=== PATIENT | male | born 1960 | race Caucasian/White ===

== ENCOUNTER 2024-12-28 16:06 | Outpatient (AMB) | payer BC, SELFPAY | END 2024-12-28 16:14 | disposition home or self-care (01) | PROVIDERS: Visit Provider Registered Nurse Emergency | DX: J30.89 Other allergic rhinitis (principal) | CPT/HCPCS: 95117; 95165 ==

== ENCOUNTER 2025-01-30 16:14 | Outpatient (AMB) | payer OTHER, SELFPAY | END 2025-01-30 16:14 | disposition home or self-care (01) | LOC: HO.HMGAL 16:14 | PROVIDERS: PCP Nurse Practitioner Family; Visit Provider Registered Nurse Emergency | DX: J30.89 Other allergic rhinitis (principal) | CPT/HCPCS: 95117; 95165 ==

== ENCOUNTER 2025-02-27 11:41 | Outpatient (AMB) | payer OTHER, SELFPAY | END 2025-02-27 11:44 | disposition home or self-care (01) | LOC: HO.HMGAL 11:41 | PROVIDERS: PCP Nurse Practitioner Family; Visit Provider Registered Nurse Emergency | DX: J30.89 Other allergic rhinitis (principal) | CPT/HCPCS: 95117; 95165 ==

== ENCOUNTER 2025-03-20 09:19 | Outpatient (AMB) | payer OTHER, SELFPAY | END 2025-03-20 09:22 | disposition home or self-care (01) | LOC: HO.HMGAL 09:19 | PROVIDERS: PCP Nurse Practitioner Family; Visit Provider Registered Nurse Emergency | DX: J30.89 Other allergic rhinitis (principal) | CPT/HCPCS: 95117; 95165 ==

== ENCOUNTER 2025-04-12 16:12 | Outpatient (AMB) | payer OTHER, SELFPAY | END 2025-04-12 16:12 | disposition home or self-care (01) | LOC: HO.HMGAL 16:12 | PROVIDERS: PCP Nurse Practitioner Family; Visit Provider Registered Nurse Emergency | DX: J30.89 Other allergic rhinitis (principal) | CPT/HCPCS: 95117; 95165 ==